=== PATIENT | female | born 1945 | race African-American/Black ===

== ENCOUNTER 2020-07-15 08:21 | Emergency (ER) | payer OTHER ==
[~2020-07-15] VITALS: Ht 165.1 cm; Wt 79.4 kg
[~2020-07-15 08:21] MED LIST: IBUPROFEN 200200 M1 PO; MAALOX525 MG/15 PO; NORCO 5-325 TA1 EACH PO
[2020-07-15 09:40] LABS: BE(vivo) -14.7 mmol/L (-2 to +3); HCO3 12.6 mmol/L (22.0-26.0); PCO2 34.4 mmHg (35.0-45.0); PO2 168.2 mmHg (80.0-100.0); sO2 98.7 % (92.0-98.0)
[2020-07-15 10:42] VITALS: BP 114/86
[2020-07-15 10:52] LABS: HEMOGLOBIN 14.5 gm/dL (12.0-15.0)
[2020-07-15 10:54] LABS: HEMATOCRIT 48.2 % (37.0-47.0); MCH 28.3 pg (26.0-34.0); MCV 94.4 fL (80.0-100.0); RBC 5.11 mil/uL (4.20-5.00); RDW 17.4 % (10.5-14.5); WBC 7.2 thou/uL (4.0-11.0)
[2020-07-15 11:02] LABS: INR 1.5; PROTIME 15.7 Seconds (9.3-11.4)
[2020-07-15 11:11] LABS: ALBUMIN 2.4 g/dL (3.4-5.0); CALCIUM 9.4 mg/dL (8.5-10.1); POTASSIUM 4.7 mmol/L (3.5-5.1); TOTAL BILIRUBIN 1.1 mg/dL (0.2-1.0); TOTAL PROTEIN 8.1 g/dL (6.4-8.2); TROPONIN-I 0.38 ng/mL (<0.06)
--- NOTE | 2020-07-15 11:24 | EKG ---
[facility] [place] [address] ELECTROCARDIOGRAM REPORT Name: KIMBERLY CARDONA Room #: REG [facility]#: [id number] Admission: 07/15/20 Attend Phys: Discharge: Date of : 49 Report #: [id number] THIS REPORT FOR: cc: Chaya Schaeffer MD, Ramilo MD Santiago, Patrick MD [facility] ~ THIS REPORT FOR: //name// [facility] ED Test Date: 2020-07-15 Test Time: 10:46:54 Pat Name: KIMBERLY CARDONA Department: Room: Gender: Mis Director: [facility] : 1945 Requested By: Gomez Basurto Order Number: [id number] MD: Shaq Ge Measurements Intervals [place] Rate: 128 P: 90 [place]: 144 QRS: 258 QRSD: 96 T: -15 QT: 333 QTc: 486 Interpretive Statements Sinus tachycardia Inferior infarct, old Ischemic changes anterior leads No previous ECG available for comparison Electronically Signed On 07-15-2020 11:23:50 CDT by Shaq Ge [email or web address] <ELECTRONICALLY SIGNED> By: Shaq Ge MD, FACC 07/15/20 [id number] Shaq Ge MD, [facility] /EPI
[2020-07-15 11:29] LABS: ABSOLUTE NEUTROPHILS 4.8 thou/uL (1.4-8.2); ATYPICAL LYMPHS 1 %
[2020-07-15 11:30] LABS: NUCLEATED RBCS 2 /100WBC
[2020-07-15 11:31] LABS: ANISOCYTOSIS 1+; PLATELET COUNT 226 thou/uL (150-400)
[2020-07-15 11:32] LABS: LARGE PLATELETS FEW
== END 2020-07-15 15:49 ==
LOC: ER 08:21
PROVIDERS: Emergency Medicine
DX: I46.9 Cardiac arrest, cause unspecified (principal); Z90.710 Acquired absence of both cervix and uterus; Z79.899 Other long term (current) drug therapy; Z79.1 Long term (current) use of non-steroidal anti-inflammatories (NSAID); Z20.828 Contact with and (suspected) exposure to other viral communicable diseases